=== PATIENT | male | born 1950 | race Caucasian/White ===

== ENCOUNTER 2021-06-12 00:15 | Emergency (ER) | payer MEDICARE, OTHER, SELFPAY ==
[2021-06-12 00:17] VITALS: BP 153/75; PULSE 80; RESP 19; TEMP 36.8; O2SAT 98; BMI 29.7
--- NOTE | 2021-06-12 00:34 | EKG12_ITS ---
Test Reason : CP Blood Pressure : / mmHG Vent. Rate : 077 BPM Atrial Rate : 077 BPM P-R Int : 158 ms QRS Dur : 086 ms QT Int : 362 ms P-R-T Axes : 039 023 102 degrees QTc Int : 409 ms Normal sinus rhythm ST & T wave abnormality, consider lateral ischemia Abnormal ECG Confirmed by CHRISTINE DURAND, BALA ([id number]), editor sound BHAKTI LARRY ([id number]) on 06/12/2021 2:13:31 PM Referred By: JOZEF Confirmed By:BALA KING MD
--- NOTE | 2021-06-12 00:34 | RAD_ITS ---
INDICATION: chest pain EXAMINATION/TECHNIQUE: X-RAY - XR Chest 2 Views COMPARISON: None. FINDINGS: LUNGS: No consolidation. Small nodular focus overlying the right lower chest/upper abdomen on the PA view possibly granuloma in the right lower lobe. No pneumothorax. MEDIASTINUM: Aorta tortuous and atherosclerotic.. CARDIAC SILHOUETTE: Not enlarged. Pacemaker device overlying the left chest with dual leads terminating in the region of the right atrium and right ventricle. BONES AND SOFT TISSUES: Degenerative changes in the dorsal spine. No acute abnormalities. IMPRESSION: No acute findings. Electronically Signed: Tammy Roldan MD at 1:12 EDT , RAD/Chest PA and Lateral
--- NOTE | 2021-06-12 00:42 | EDS_ITS ---
HPI History of Present Illness Chief Complaint: Chest Pain Narrative Narrative: Patient is a 71-year-old male from [place]. He states that he and his are traveling across country from [place] back to [place] and they stopped off in [place] to see his sister. He states he was feeling fine but after dinner was relaxing to go to bed when he noticed some vague chest/upper abdominal discomfort that he describes more as a slight pressure and burn. He states the symptoms have been waxing and waning for the past 3 to 4-hour. He denies any nausea vomiting diaphoresis or shortness of breath associated with this. He does report a past medical history of hypertrophic cardiomyopathy with defibrillator placement and because of this was concerned and comes in for evaluation. 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) in place Home Medications aspirin [Aspirin Low Dose] 81 mg PO DAILY 06/12/21 [History Last Taken Unknown] lisinopril 10 mg PO DAILY 06/12/21 [History Last Taken Unknown] metoprolol succinate 50 mg PO DAILY 06/12/21 [History Last Taken Unknown] Allergy/AdvReac Type Severity Reaction Status Date / Time No Known Allergies Allergy Verified 06/12/21 00:25 Social History Smoking Status: Never smoker [facility] ED Constitutional Constitutional ED: Denies chills or fever(s) ENT ENT ED: Denies sore throat Cardiovascular Cardiovascular: Reports chest pain; Denies palpitations or racing heartbeat Respiratory/Chest Respiratory/Chest: Denies cough or dyspnea Gastrointestinal Gastrointestinal: Denies abdominal pain, diarrhea, nausea or vomiting Genitourinary Genitourinary ED: Denies dysuria Musculoskeletal Musculoskeletal: Denies myalgias Integumentary Denies rash Neurologic Neurologic: Denies headache(s) Hematologic/Lymphatic Hematologic/Lymphatic: Denies easy bleeding or easy bruising EXAM Physical Exam Const Vital Signs: 06/12/21 00:17 06/12/21 00:19 06/12/21 02:15 Temperature 98.2 F Temperature Source Temporal Pulse Rate 80 68 Respiratory Rate 19 H 18 Respiratory Effort Normal Non-Labored Blood Pressure 153/75 H 116/74 Blood Pressure Mean 101 88 Pulse Ox 98 97 Oxygen Delivery Method Room Air Room Air Positive well nourished, well developed and obese General Appearance ED: well developed Nutritional Appearance: obese Eyes PERRL and EOMs intact bilaterally Neck supple and no JVD Chest Wall Chest Narrative: There is pain with palpation of the left anterior lower intercostal muscle region ribs 10-12 that patient states is similar to the pain he has been feeling. No obvious bony deformity or crepitance. No overlying soft tissue changes to suggest trauma or infection Resp normal respiratory effort and clear to auscultation bilaterally Cardio regular rate and regular rhythm Rate: other Other Details: Radial pulses are +2-4 bilaterally are equal and symmetric GI normal to inspection, nondistended, normoactive bowel sounds, non-tender, non- distended and no masses GI Narrative: No voluntary guarding or rigidity no pulsatile mass or fluid wave Auscultation: normoactive bowel sounds Palpation: soft Extremity normal to inspection Extremity Narrative: No asymmetric edema no pitting edema negative Homans' sign bilateral Neuro oriented x3 and CN's II-XII intact bilaterally Sensorium / Orientation: alert Motor Exam: strength 5/5 throughout Psych mental status grossly normal Skin no rashes or lesions noted MDM MDM MDM Narrative Medical decision making narrative: Patient presented to the ER with 3 to 4 hours of a vague discomfort in his lower chest/upper abdomen. He did not have any nausea vomiting diaphoresis or shortness of breath associated with this. Ho wever he does have risk factors for cardiac disease and therefore work-up was obtained. Patient states he took aspirin prior to arrival so therefore this was not given. The patient's EKG showed nonspecific flattening in leads I and II but no STEMI change. Work-up showed a troponin of 41 initially an increase of 26 points to 47 with a 2-hour delta. Both of these values are still within the normal ranges for the high-sensitivity troponin. The patient's chest x-ray revealed no acute findings and on reevaluation he reported feeling no pain. Therefore at this time with an overall negative work-up and spontaneous resolution of symptoms I do not feel there is need for inpatient placement and patient will be discharged home and can follow-up with his family doctor. Even though he has been traveling across country he states there is never been more than 4 hours of time where he has been immobilized and therefore I do not feel there is a need for D-dimer as his presentation does not correlate with a pulmonary bolus. Lab Data Attestation: I reviewed the patient's lab results. Labs: Laboratory Results - last 24 hr 06/12/21 06/12/21 06/12/21 00:20 00:20 02:16 WBC 7.6 RBC 4.53 L Hgb 13.9 Hct 41.3 MCV 91.2 MCH 30.7 MCHC 33.7 RDW Std Deviation 40.4 RDW Coeff of Gildardo 12.2 Plt Count 186 MPV 11.8 Immature Gran % (Auto) 0.300 Neut % (Auto) 67.1 Lymph % (Auto) 21.9 [place] % (Auto) 8.6 Eos % (Auto) 1.7 Baso % (Auto) 0.4 Absolute Neuts (auto) 5.1 Absolute Lymphs (auto) 1.66 Nucleated RBC % 0 Sodium 141 Potassium 3.9 Chloride 110 H Carbon Dioxide 25.0 Anion Gap 6 BUN 15 Creatinine 1.16 Estim Creat Clear Calc 53.03 Est GFR (MDRD) Af Amer 79 Est GFR (MDRD) Non-Af 66 BUN/Creatinine Ratio 12.9 Glucose 138 H Calcium 8.7 Magnesium 2.1 Total Bilirubin 0.40 Direct Bilirubin 0.12 AST 20 ALT 37 Alkaline Phosphatase 71 Troponin I High Sens 41 47 Total Protein 6.9 Albumin 3.7 Globulin 3.2 Lipase 291 Radiography Diagnostic Testing: Clinical Impression(s) from Imaging Studies Chest X-Ray 06/12/21 00:34 Chest x-ray is interpreted by the emergency medicine physician reveals no acute infiltrate pneumothorax or pleural effusion Discharge Plan Triage Chief Complaint: Chest Pain ED Provider: Billy Sears Dx/Rx/DC Orders Clinical Impression: Nonspecific chest pain Prescriptions: No Action aspirin [Aspirin Low Dose] 81 mg Tablet,Delayed Release (Dr/Ec) 81 mg PO DAILY RF: 0 lisinopril 10 mg Tablet 10 mg PO DAILY RF: 0 metoprolol succinate 50 mg Capsule,Sprinkle,Er 24hr 50 mg PO DAILY RF: 0 Referrals: ZHANNA LIN [Other] Activity Restrictions/Additional Instructions: Please follow-up with your family doctor when you return home and discuss need for further testing on an outpatient basis if symptoms persist. Please return to the ER should you have any further concerns Disposition Disposition: Home, Self Care
[2021-06-12 00:43] LABS: Absolute Lymphocyte Count 1.66 X10^3/uL (0.83-4.51); Absolute Neutrophil Count 5.1 X10^3/uL (2.0-7.7); Basophil# 0.03 X10^3/uL; Basophil% 0.4 % (0-1); Eosinophil# 0.13 X10^3/uL; Eosinophils% 1.7 % (0-5); Hematocrit 41.3 % (40-54); Hemoglobin 13.9 g/dL (13.0-16.5); Lymphocyte # 1.66 X10^3/ul (0.83-4.51); Lymphocyte % 21.9 % (19-41); Mean Corp Hgb Conc 33.7 g/dL (32-36); Mean Corpuscular Hgb 30.7 pg (27.0-32.0); Mean Corpuscular Volume 91.2 fL (80-94); Mean Platelet Vol. 11.8 fl (6.2-12.0); Monocyte# 0.65 X10^3/uL; Monocyte% 8.6 % (0-10); NRBC Flagged by Analyzer 0 % (0-5); Neutrophil % 67.1 % (47-70); Platelet Count 186 K/mm3 (150-450); RBC Distribution Width CV 12.2 % (11.6-14.6); RBC Distribution Width SD 40.4 fl (35.1-43.9); Red Blood Count 4.53 M/mm3 (4.6-6.2); White Blood Count 7.6 K/mm3 (4.4-11.0)
[2021-06-12 01:02] LABS: AST(SGOT) 20 U/L (15-37); Alanine Aminotransfer ALT/SGPT 37 U/L (16-61); Albumin, Serum 3.7 g/dL (3.2-5.0); Alkaline Phosphatase 71 U/L (45-117); Anion Gap 6 (5-15); BUN 15 mg/dL (7-18); BUN/Creat Ratio 12.9 RATIO (10-20); Bilirubin, Direct 0.12 mg/dL (0.00-0.30); Calcium,Total 8.7 mg/dL (8.5-10.1); Chloride 110 mmol/L (98-107); Creatinine, Serum 1.16 mg/dL (0.70-1.30); EST Glomerular Filtration Rate 66 mL/min (>60); Est Glom Filt Rate - Afr Amer 79 mL/min (>60); Estimated Creatinine Clearance 53.03 ml/min; Globulin 3.2 g/dL (2.2-4.2); Glucose 138 mg/dL (74-106); Lipase 291 U/L (73-393); Magnesium 2.1 mg/dL (1.6-2.6); Potassium 3.9 mmol/L (3.5-5.1); Protein, Total 6.9 g/dL (6.4-8.2); Sodium Level 141 mmol/L (136-145); Troponin-I HS 41 pg/mL (3.0-78.0)
[2021-06-12 02:15] VITALS: BP 116/74; PULSE 68; RESP 18; O2SAT 97
[2021-06-12 02:41] LABS: Troponin-I HS 47 pg/mL (3.0-78.0)
[2021-06-12 03:54] VITALS: BP 110/62; PULSE 82; RESP 16; O2SAT 97
== END 2021-06-12 03:55 | disposition home or self-care (01) ==
PROVIDERS: Emergency Provider Emergency Medicine; Visit Provider Emergency Medicine
DX: R07.89 Other chest pain (principal); I42.1 Obstructive hypertrophic cardiomyopathy; E78.00 Pure hypercholesterolemia, unspecified; I10 Essential (primary) hypertension; Z95.810 Presence of automatic (implantable) cardiac defibrillator; Z79.82 Long term (current) use of aspirin; Z79.899 Other long term (current) drug therapy; E66.9 Obesity, unspecified; Z68.29 Body mass index [BMI] 29.0-29.9, adult
CPT/HCPCS: 71046; 80048; 80076; 83690; 83735; 84484; 85025; 93005; 99284; A4216